=== PATIENT | female | born 1945 | race Hispanic/Latino ===

== ENCOUNTER 2017-04-19 14:09 | Outpatient (CLI) | payer MEDICARE, OTHER ==
--- NOTE | 2017-04-19 15:29 | Mammography Report ---
BONE DENSITY STUDY: DEFINITIONS: BMD = Bone Mineral Density T-score = BMD related to mean peak bone mass of young adult (mean expressed in Standard Deviation) Z-score = Age matched BMD expressed in SD World Health Organization (WHO) Diagnostic Criteria Normal T-score > -1 SD Osteopenia T-score between -1 and -2.4 SD Osteoporosis T-score -2.5 SD or below FINDINGS: The weighted average BMD of lumbar spine L1-L4 is 0.675 with a T-score of -3.4. The weighted average BMD of hip is 0.639 with a T-score of -2.5. IMPRESSION: The patient's T-score is diagnostic for osteoporosis and high relative risk for fracture. NOTE: BMD is not the only risk factor for fracture; also consider factors such as the patient's age, risk of falling, previous osteoporotic fracture, family history of osteoporotic fractures, current smoker, and low body weight. Sal[place]'s triangle is a region of interest in femur, predominantly of trabecular bone. It is not a true anatomic site, and [facility] does not recommend its use clinically.
== END 2017-04-19 14:10 | disposition home or self-care (01) ==
LOC: MAMMO 14:09
PROVIDERS: ATTEND Obstetrics & Gynecology Gynecology
DX: M81.0 Age-related osteoporosis without current pathological fracture (principal)
CPT/HCPCS: 77080

== ENCOUNTER 2020-05-11 10:13 | Outpatient (CLI) | payer MEDICARE ==
--- NOTE | 2020-05-11 13:14 | Mammography Report ---
DEXA BONE DENSITY SCAN INDICATION: OSTEOPOROSIS. COMPARISON: DEXA scan from 04/19/2017 LUMBAR SPINE (L1-L4): Bone mineral density (BMD) is 0.675 g/cm2. T-score is -3.4 (standard deviations of Young Adult mean). Z-score is -1.1 (standard deviations of Age Matched mean). Bone mineral density and T score have not changed, while the Z score is slightly improved (previously -1.3). RIGHT FEMORAL NECK: Bone mineral density (BMD) is 0.492 g/cm2. T-score is -3.2 (standard deviations of Young Adult mean). Z-score is -1.2 (standard deviations of Age Matched mean). Bone mineral density has decreased (previously 0.561) and both T score (previously -2.6) and Z score (previously -0.8) show interval worsening. IMPRESSION: 1. WHO Classification: Osteoporosis. Fracture Risk: High. The exam has worsened primarily in the righ t femoral neck as outlined above. Signer Name: Chidi Amin MD Signed: 05/11/2020 1:10 PM Workstation Name: [id number]
== END 2020-05-11 10:14 | disposition home or self-care (01) ==
LOC: MAMMO 10:13
PROVIDERS: ATTEND Nurse Practitioner Women's Health
DX: M81.0 Age-related osteoporosis without current pathological fracture (principal)
CPT/HCPCS: 77085